=== PATIENT | male | born 1995 | race Hispanic/Latino ===

== ENCOUNTER 2019-12-20 14:14 | Emergency (ER) | payer SELFPAY ==
[2019-12-20] MEDS ORDERED: ONDANSETRON HCL 4 MG/2 ML VIAL ONE (14:32)
[2019-12-20] MEDS ORDERED: FENTANYL CITRATE PF 50 MCG/1 ML 2ML VIAL ONE (14:32)
[2019-12-20 14:40] LABS: BASOPHILS % (AUTO) 0.4 % (0.0-5.0); EOSINOPHILS % (AUTO) 1.4 % (0.0-8.0); HEMATOCRIT 46.7 % (42-54); LYMPHOCYTES % (AUTO) 25.1 % (21.0-51.0); MEAN CORPUSCULAR HEMOGLOBIN 28.4 pg (27.0-33.0); MEAN CORPUSCULAR HGB CONC 33.6 g/dL (32.0-36.0); MEAN CORPUSCULAR VOLUME 84.4 fL (79-99); MONOCYTES % (AUTO) 7.9 % (3.0-13.0); NEUTROPHILS % (AUTO) 64.9 % (40.0-77.0); PLATELET COUNT (AUTO) 285 K/uL (130-400); RED BLOOD CELL COUNT(AUTO) 5.53 MIL/uL (4.50-6.20); RED CELL DISTRIBUTION WIDTH 12.5 % (11.0-15.5); WHITE BLOOD COUNT (AUTO) 9.2 K/uL (4.8-10.8)
[2019-12-20 15:02] LABS: CREATININE 1.4 mg/dL (0.5-1.5); POTASSIUM 3.7 mmol/L (3.5-5.1)
[2019-12-20 15:07] LABS: ALBUMIN 4.1 g/dL (3.5-5.0); BILIRUBIN,TOTAL 0.8 mg/dL (0.2-1.0); TOTAL PROTEIN, SERUM 7.9 g/dL (6.0-8.3)
[2019-12-20 15:18] LABS: APPEARANCE,URINE Turbid (CLEAR); BILIRUBIN,URINE Small (NEGATIVE); GLUCOSE, URINE (UA) Negative (NEGATIVE); KETONES,URINE Trace mg/dL (NEGATIVE); LEUKOCYTE ESTERASE ,URINE Small (NEGATIVE); NITRATE,URINE Negative (NEGATIVE); OCCULT BLOOD,URINE Large (NEGATIVE); PH,URINE 5.5 (5.0-8.0); PROTEIN,URINE POS 2+ mg/dL (NEGATIVE)
[2019-12-20 15:22] LABS: COLOR,URINE Orange (YELLOW)
[2019-12-20 15:33] LABS: RBC,URINE 51-100 /HPF (0-1)
[2019-12-20 15:34] LABS: BACTERIA,URINE Moderate /HPF (None Seen)
[2019-12-20] MEDS ORDERED: KETOROLAC TROMETHAMINE 30MG/ML ONE (15:56)
[2019-12-20] MEDS ORDERED: SODIUM CHLORIDE 0.9% 500ML 500 ML IV ONE (15:56)
[2019-12-20] MEDS ORDERED: CEFTRIAXONE SODIUM 1 GM ONE (17:03)
[2019-12-20] MEDS ORDERED: SODIUM CHLORIDE 0.9% 50 ML IV ONE (17:03)
== END 2019-12-20 17:34 | disposition home or self-care (01) ==
LOC: EDH 14:14
DX: N30.01 Acute cystitis with hematuria (principal); N50.812 Left testicular pain; R11.2 Nausea with vomiting, unspecified
CPT/HCPCS: 36415; 76770; 76870; 80053; 81001; 83690; 85025; 96361; 96375; 96374; 99285; J0696; J1885; J2405; J3010; J7040